=== PATIENT | male | born 1985 | race Caucasian/White ===

== ENCOUNTER 2021-07-03 22:17 | Emergency (ER) | payer MEDICAID ==
[~2021-07-03] VITALS: Ht 172.7 cm; Wt 83.9 kg
[2021-07-03 22:17] VITALS: BP 93/55
--- NOTE | 2021-07-03 22:17 | NUR ---
BIBA TAKEN TO BED #6
--- NOTE | 2021-07-03 22:17 | NUR ---
29/M KEN[place] PT WAS FOUND PASSED OUT IN THE PARKING LOT IN FRONT OF 7-ELEVEN, SUSPECTED ETOH. PT DROWSY AND LETHARGIC WITH MOMENTS OF WAKFULNESS ON PAINFUL STIMULI, PERRL. PMH: UNKNOWN ALLERGY: UNKNOWN.
--- NOTE | 2021-07-03 22:25 | NUR ---
CODE BRAIN INTIATED BY DR. MONAHAN
[2021-07-03] MEDS ORDERED: NACL 0.9% 1,000 ML IV ONE (22:30)
--- NOTE | 2021-07-03 22:44 | NUR ---
PT BROUGHT BACK FROM CT
--- NOTE | 2021-07-03 22:45 | NUR ---
BLOOD DRAWN VIA IV START AND GIVEN TO [employer] MACHINE [employer].
[2021-07-03 22:56] LABS: BASOPHILS # (AUTO) 0.1 K/uL (0.00-0.22); BASOPHILS % (AUTO) 0.9 % (0.0-2.0); EOSINOPHILS # (AUTO) 0.1 K/uL (0-0.4); EOSINOPHILS % (AUTO) 1.3 % (0.0-4.0); HEMATOCRIT 40.9 % (36-52); HEMOGLOBIN 13.4 g/dL (12.0-18.0); LYMPHOCYTES # (AUTO) 2.4 K/uL (2.0-11.5); LYMPHOCYTES % (AUTO) 37.3 % (20.5-51.1); MEAN CORPUSCULAR HEMOGLOBIN 30 pg (27-31); MEAN CORPUSCULAR HGB CONC 33 g/dL (33-37); MEAN CORPUSCULAR VOLUME 90.4 fL (80-94); MONOCYTES # (AUTO) 0.4 K/uL (0.8-1.0); NEUTROPHILS # (AUTO) 3.4 K/uL (1.8-7.7); NEUTROPHILS % (AUTO) 53.5 % (42.2-75.2); PLATELET COUNT (AUTO) 271 K/uL (140-450); RED BLOOD CELL COUNT(AUTO) 4.52 MIL/uL (4.20-6.10); RED CELL DISTRIBUTION WIDTH 16.5 % (11.6-13.7); WHITE BLOOD COUNT (AUTO) 6.4 K/uL (4.8-10.8)
[2021-07-03 23:23] LABS: ALBUMIN 3.8 g/dL (3.4-5.0); ANION GAP 12.6 (8-16); ASPARTATE AMINOTRANSFERASE 31 U/L (15-37); CARBON DIOXIDE 30.5 mmol/L (21-32); CHLORIDE 106 mmol/L (98-107); CREATININE 0.8 mg/dL (0.6-1.3); GFR ARICAN-AMERICAN 145 mL/min (>90); GLUCOSE 98 mg/dL (74-106); POTASSIUM 4.1 mmol/L (3.5-5.1); SODIUM SERUM 145 mmol/L (136-145); TOTAL BILIRUBIN 0.3 mg/dL (0.0-1.0); UREA NITROGEN, BLOOD 4 mg/dL (7-18)
[2021-07-03 23:25] LABS: ACETAMINOPHEN < 0.5 ug/ml (10-30); SALICYLATE < 2.8 mg/dL (2.8-20.0)
--- NOTE | 2021-07-04 00:04 | NUR ---
URINE SAMPLE OBTAINED THROUGH STRAIGHT CATH. SAMPLE SENT TO LAB
[2021-07-04 00:21] LABS: BARBITURATE, URINE NEGATIVE ng/ml (NEG <=200); BENZODIAZEPINE, URINE NEGATIVE ng/mL (NEG <=200); CANNABINOID, URINE NEGATIVE ng/mL (NEG <=50); COCAINE, URINE NEGATIVE ng/mL (NEG <=300); OPIATE, URINE NEGATIVE ng/mL (NEG <=2000); PHENCYCLIDINE SCREEN,URINE NEGATIVE ng/mL (NEG <=25)
--- NOTE | 2021-07-04 02:23 | NUR ---
ASLEEP, VS STABLE. VISIBLE CHEST RISE AND FALL NOTED. PT NOT IN DISTRESS. SPO2 95%. PT WITH MOMENTS OF WAKEFULNESS.
--- NOTE | 2021-07-04 04:37 | NUR ---
PT WAKING UP TO SHAKING AND PAINFUL STIMULI. ABLE TO TALK BUT INCOMPREHENSIBLE. NO S/SX OF DISTRESS NOTED. SAFETY MEASURES IN PLACE WILL CONTINUE TO MONITOR.
[2021-07-04] MEDS ORDERED: NACL 0.9% 1,000 ML IV ONE (04:40)
[2021-07-04 06:53] VITALS: BP 98/58
--- NOTE | 2021-07-04 06:53 | NUR ---
Patient discharged with v/s stable. Written and verbal after care instructions given and explained. Patient verbalized understanding. Ambulatory with steady gait. All questions addressed prior to discharge. Advised to follow up with PMD.
== END 2021-07-04 06:53 | disposition home or self-care (01) ==
LOC: MED 22:17 → EDBD 22:17 → MED 07-04 06:53
DX: R41.82 Altered mental status, unspecified (principal); F10.129 Alcohol abuse with intoxication, unspecified
CPT/HCPCS: 36415; 70450; 72125; 80053; 80305; 85025; 96360; 96361; 99285; G0480; G0482; J7030

== ENCOUNTER 2021-07-13 22:10 | Emergency (ER) | payer MEDICAID ==
[~2021-07-13] VITALS: Ht 165.1 cm; Wt 79.4 kg
--- NOTE | 2021-07-13 22:10 | NUR ---
2201- PT [facility] BLS. TAKEN TO BED 8
--- NOTE | 2021-07-13 22:18 | NUR ---
Dr. Oliva examining patient.
[2021-07-13 22:19] VITALS: BP 118/85
--- NOTE | 2021-07-13 22:22 | NUR ---
PATIENT ADMITS TO DRINKING. NO COMPLAINTS AT THIS TIME.
[2021-07-14 07:09] VITALS: BP 137/80
== END 2021-07-14 07:09 | disposition home or self-care (01) ==
LOC: MED 22:10
DX: F10.129 Alcohol abuse with intoxication, unspecified (principal); R41.82 Altered mental status, unspecified; Z98.890 Other specified postprocedural states
CPT/HCPCS: 99283